=== PATIENT | female | born 1990 | race Caucasian/White ===

== ENCOUNTER 2020-07-05 21:42 | Emergency (ER) | payer OTHER ==
[~2020-07-05 21:42] MED LIST: BACTROBAN OINT22 GM EXT; BENTYL 20MG TAB20 MG PO; DOCUSATE SODIU250 MG PO; IBUPROFEN600 MG PO; IBUPROFEN800 MG PO; NORCO 7.5-3251 EACH PO; OMNICEF 300 MG300 MG PO; PYRIDIUM200 MG PO; ZOFRAN4 MG PO
== END 2020-07-05 22:39 | disposition home or self-care (01) ==
LOC: ER1 21:42
DX: S61.213A Laceration without foreign body of left middle finger without damage to nail, initial encounter (principal); F17.200 Nicotine dependence, unspecified, uncomplicated; W26.0XXA Contact with knife, initial encounter
CPT/HCPCS: 12001; 99282

== ENCOUNTER 2021-06-14 15:15 | Emergency (ER) | payer OTHER ==
[2021-06-14] MEDS ORDERED: BACTRIM DS TAB1 EACH PO (15:39)
== END 2021-06-14 15:48 | disposition home or self-care (01) ==
LOC: ER1 15:15
DX: H60.01 Abscess of right external ear (principal)
CPT/HCPCS: 99282

== ENCOUNTER 2021-07-31 11:04 | Emergency (ER) | payer OTHER ==
[~2021-07-31 11:04] MED LIST changes: +BACTRIM DS TAB1 EACH PO
[2021-07-31 12:17] LABS: HEMOGLOBIN 13.4 gm/dl (12.3-15.3); RED BLOOD COUNT 4.95 M/UL (4.00-5.10); WHITE BLOOD COUNT 4.1 K/UL (4.5-11.0)
[2021-07-31 12:59] LABS: BUN/CREATININE RATIO 9 (0-10)
[2021-07-31] MEDS ORDERED: FLONASE 0.05% N16 GM (15:49)
[2021-07-31] MEDS ORDERED: ATROVENT HFA12.9 GM INH (15:49)
[2021-07-31] MEDS ORDERED: DELSYM30 MG/5 ML PO (15:49)
== END 2021-07-31 16:00 | disposition home or self-care (01) ==
LOC: ER1 11:04
PROVIDERS: Physician Assistant Medical
DX: U07.1 COVID-19 (principal); Z87.891 Personal history of nicotine dependence
CPT/HCPCS: 71045; 80053; 81001; 82550; 82553; 83605; 83874; 84484; 85025; 85379; 93005; 99284; J1100; Q9967

== ENCOUNTER 2022-01-21 10:17 | Emergency (ER) | payer OTHER ==
[~2022-01-21 10:17] MED LIST changes: +ATROVENT HFA12.9 GM INH; +DELSYM30 MG/5 ML PO; +FLONASE 0.05% N16 GM
[2022-01-21 11:41] LABS: HEMOGLOBIN 12.6 gm/dl (12.3-15.3); RED BLOOD COUNT 4.67 M/UL (4.00-5.10); WHITE BLOOD COUNT 8.7 K/UL (4.5-11.0)
[2022-01-21 12:10] LABS: BUN/CREATININE RATIO 15 (0-10)
== END 2022-01-21 13:08 | disposition home or self-care (01) ==
LOC: ER1 10:17
PROVIDERS: Emergency Medicine
DX: R07.2 Precordial pain (principal); Z90.89 Acquired absence of other organs; F17.290 Nicotine dependence, other tobacco product, uncomplicated; R61 Generalized hyperhidrosis
CPT/HCPCS: 71045; 80053; 82550; 82553; 84484; 85025; 93005; 99285